=== PATIENT | female | born 1965 | race Caucasian/White ===

== ENCOUNTER 2024-11-20 13:55 | Emergency (ER) | payer OTHER, SELFPAY ==
[2024-11-20 13:57] VITALS: BP 127/76
[2024-11-20 14:15] LABS: Hematocrit 43.3 % (37.0-47.0); Hemoglobin 15.3 g/dL (12.0-16.0); Mean Corp Hgb Conc. 35.3 g/dL (33.0-37.0); Mean Corpuscular Volume 83.0 fL (81.0-99.0); Nucleated Red Blood Cells % 0 %; Platelet Count 322 10^3/uL (130-400); Red Cell Dist. Width 12.6 % (11.5-14.5)
[2024-11-20 14:31] LABS: ALT (SGPT) 23 U/L (0-35); AST (SGOT) 25 U/L (14-36); Albumin 4.8 g/dl (3.5-5.0); Alkaline Phosphatase 76 U/L (38-126); Blood Urea Nitrogen 25 mg/dl (7-17); Calcium 9.8 mg/dl (8.4-10.2); Carbon Dioxide 22 mmol/L (22-30); Chloride 109 mmol/L (98-107); Glucose 105 mg/dl (70-99); Potassium 4.2 mmol/L (3.5-5.1); Sodium 138 mmol/L (135-145); Total Protein 7.4 g/dl (6.3-8.2); eGFR 58.24
[2024-11-20 14:43] LABS: Troponin I < 0.012 ng/ml
[2024-11-20 15:40] VITALS: BP 117/73
[2024-11-20 16:00] VITALS: BP 116/67
[2024-11-20 17:00] VITALS: BP 134/81
[2024-11-20] MEDS: TYLENOL 650 MG PO (17:14)
[2024-11-20] MEDS: ZOFRAN 4 MG IV (17:14)
[2024-11-20] MEDS: NSS 1000 IV (17:14)
[2024-11-20 17:24] LABS: Urine Character Clear (Clear)
[2024-11-20 17:38] LABS: Lipase 126 U/L (23-300)
[2024-11-20 17:43] LABS: Urine Red Blood Cell 0-2 /HPF (0-2); Urine Squamous Cell 16-20 /LPF (Few); Urine White Cell 0-2 /HPF (0-5)
[2024-11-20 17:58] VITALS: BP 125/76
[2024-11-20 18:00] VITALS: BP 128/73
--- NOTE | 2024-11-20 18:30 | ED.GENMED ---
History of Present Illness
General
Chief Complaint: Abdominal Symptoms
Time Seen by Provider: 11/20/24 16:09
History of Present Illness
History of Present Illness:
see MDM
Past History
Past History
ED Past Medical History: None
Social History
Tobacco: Non-smoker
Personal: Single
Living: with family
Phy Exam
Physical Exam
Physical Exam:
GENERAL: Alert , in no apparent distress
EYE: pupils equal and reactive
NECK: Supple
ENT: o/p clr, mmm.
CARDIAC: Regular rate and rhythm .no murmur appreciated
LUNGS: Clear breath sounds bilaterally, no acute respiratory distress, no wheezes/rales/rhonchi
ABDOMEN: Soft,mild LUQ tendnress, faint bruising to this area from previous trauma, no palpable hematoma no r/g, no cvat, normal bowel sounds
NEUROLOGICAL: Alert and oriented, no focal neuro deficits
SKIN: Warm and dry, skin intact.
MUSCULOSKELETAL: No edema, well perfused. neg rock's sign
PSYCH: Normal and appropriate interaction.
Course
Orders/Labs/Results
Orders:
Orders
11/20/24 14:00
ECG [Electrocardiogram (*1)] Urgent
Reason for Study: Vertigo / Dizzy
EKG- Treatment ONCE
11/20/24 14:08
Complete Blood Count/With Diff Urgent
Comprehensive Metabolic Panel Urgent
Creatine Phosphokinase Urgent
Lipase Urgent
Troponin I Urgent
11/20/24 17:05
Add On- LAB Urgent
Tests Added?: cpk, lipase
CT Abd/Pel (IV only)-DH only Urgent
Comment:
Reason For Exam: LUQ pain, n/v/d, near sycnope
0.9% Sodium Chloride 1000 ml [Nss] 1,000 ml IV BOLUS
Acetaminophen [Tylenol] 650 mg PO NOW STA
Ondansetron Injectable [Zofran] 4 mg IV NOW STA
11/20/24 17:17
Urinalysis Reflex To Culture Urgent
Date Specimen was Collected: 11/20/24
Time Specimen was Collected: 17:08
Urine Microscopic Reflex Cult Urgent
Abnormal Lab Results
11/20/24 11/20/24
14:08 17:17
Eosinophils % 6.7 H %
(0-6)
Chloride 109 H mmol/L
(98-107)
BUN 25 H mg/dl
(7-17)
Creatinine 1.1 H mg/dL
(0.6-1.0)
Glucose 105 H mg/dl
(70-99)
Urine Ketones 1+ A
(Negative)
Ur Occult Blood Reflex 3+ A
(Negative)
Urine Bacteria (Reflex) Few A
(Negative)
Urine Albumin (Reflex) 1+ A
(Neg - Trace)
11/20/24 14:08
11/20/24 14:08
Vital Signs
Initial and Last Documented VS:
Initial Vital Signs
Temp Pulse Resp BP Pulse Ox
36.7 C 82 18 127/76 100
11/20/24 13:57 11/20/24 13:57 11/20/24 13:57 11/20/24 13:57 11/20/24 13:57
Last Documented Vital Signs
Temp Pulse Resp BP Pulse Ox
36.7 C 84 17 128/73 97
11/20/24 13:57 11/20/24 18:30 11/20/24 18:30 11/20/24 18:00 11/20/24 18:32
MDM/Problems Addressed
Differential Diagnosis Includes:
see MDM
MDM/Problems Addressed:
Note:
CHIEF COMPLAINT(S)
Severe abdominal pain accompanied by nausea and dizziness.
HISTORY OF PRESENT ILLNESS
The patient is a female no sig pmh here with abd pain, near syncope while working out in the hot conditions at [facility] [employer] [facility] [employer].
she describes experiencing dizziness and fatigue at the end of her work shift, which progressed to a 'wicked pain' in the stomach, sweating, a mild headache, a tingling sensation in her hands, nausea, and an urgent need to defecate. She reported
diarrhea both at the boathouse and afterward, with no vomiting. The symptoms commenced around 2 PM, coinciding with the peak heat and her workload.
. She suspects possible heat exhaustion as she mentioned feeling 'wiped out' and 'a little hard to breathe' due to the hot, windless environment. She consumed a high-protein meal consisting of eggs and beef sticks but noted inadequate fluid intake,
primarily relying on a large container of green tea, some liquid IV, but recognized inadequate water consumption.
The patient denied any prior syncopal episodes and any significant past medical history requiring chronic medication.
The patient also noted mild abdominal discomfort, persistent nausea, with recent abdominal bruising explained from a previous incident unrelated to current symptoms.
pt denies chest pain, palpitaitons, SOB, syncope, fever, recent travel, h/o premature CAD in family members
PHYSICAL EXAM
- Nursing notes reviewed and vital signs reviewed.
- Heart rate elevated, consistent with dehydration.
- No apparent chest tightness.
- Abdominal tenderness noted but without signs pointing toward a splenic issue.
PROBLEM LIST
- Acute: Abdominal pain, nausea, dizziness, suspected heat exhaustion, dehydration, diarrhea.
- Consideration: Vasovagal episode or beginning of a gastrointestinal infection.
PLAN
- Administration of intravenous fluids.
- Antiemetic for nausea.
- Analgesics such as Tylenol for headache management.
- Observation and reassessment of symptoms.
- Consideration of abdominal imaging (CT scan) to rule out concerning pathology if symptoms persist or worsen.
DIFFERENTIAL DIAGNOSIS
The Differential Diagnosis includes, in no particular order and is not limited to:
1. Heat exhaustion
2. Vasovagal syncope
3. Gastroenteritis
4. Dehydration
5. Viral gastrointestinal infection
6. Medication or dietary intolerance
7. Irritable bowel syndrome
8. Peptic ulcer disease
9. Acute cholecystitis
10. Abdominal aortic aneurysm
SOCIAL HISTORY
The patient does not smoke cigarettes, denies illicit drug use, and occasionally consumes alcohol.
SOCIAL DETERMINANTS AFFECTING HEALTH
No significant barriers to healthcare or social determinants directly impacting current health status were mentioned.
FAMILY HISTORY
Father with a history of myocardial infarction in their late 70s. No other significant family medical history noted.
1830
labs reviewed
wbc normal
cpk nomi;
mild BUN/CR elevation
ekg rbbb nonischemic, no tachycardia
trop neg
ua 3+ blood no rbc
CPK normal
r/o rhabdo
11/20/24 - 18:36
Patient reports improvement in headache and nausea following administration of medication. CT scan results show normal gastrointestinal and renal function with a 1 cm renal cyst and a sub-5 mm liver cyst, both deemed common and non-concerning. No
evidence of trauma or hernias; however, lumbar degenerative disease noted. Blood tests ruled out rhabdomyolysis with normal CPK levels, and pancreatic enzymes were normal, suggesting dehydration as a primary issue. Urinalysis showed blood possibly
due to dehydration and an unclean sample. Patient expresses feeling well enough for discharge and desires clearance to return to work on Monday. Advised on symptoms that would necessitate return to care, such as fever, ongoing severe
gastrointestinal symptoms, or chest pain. Follow-up urinalysis recommended to ensure resolution of hematuria.
*Pulse Oximetry
SaO2: 97
Oxygen Mode of Delivery: Room air
Patient hypoxic: no (100)
*Critical Care Note
Total Time (30-74mins, 75-104mins- exclusive of procedures): Not Applicable
ED Attending Note
-
Portions of this chart may have been created with voice recognition software.� Occasional wrong word or��sound alike� substitutions may have occurred due to the inherent limitations of voice recognition software.
Discharge Plan
Departure
Patient Disposition: Home (Routine Discharge)
Date of Disposition: 11/20/24
Time of Disposition: 18:36
Patient with high blood pressure during this ER visit?: No
Condition: Fair
Covid-19: Not Applicable
Discharge Problem:
Vasovagal near-syncope, Diarrhea, Heat exhaustion
Instructions: Near Fainting (DC), Heat Illness ED
Prescriptions:
No Action
Bactrim
1 tab PO DAILY
hydrocodone-acetaminophen 5 MG/500 MG tablet
1 tab PO .Q4-6HPRN PRN (Reason: PAIN) Qty: 20 0RF
Referrals:
Heraclio Lema MD [Family Provider, Internal Medicine]
Stand Alone Forms: Return to Work
Activity Restrictions/Additional Instructions:
YOUR SYMPTOMS COULD BE FROM THE HEAT CAUSING VASOVAGAL NEAR SYNCOPE
OR THIS COULD BE ALSO CAUSED BY A VIRAL ILLNESS (GI)
STAY HYDRATED
STAY COOL
YOUR KIDNEY FUNCTION WAS MILDLY ELEVATED, THIS IS PROBABLY RLEATED TO DEHYDRATION
YOUR URINE HAD BLOOD IN IT BUT IT IS LIKELY DEHYDRATION RELATED
YOU CAN HAVE THESE RECHECKED WHEN YOU ARE WELL
YOUR CAT SCAN DID NOT SHOW ANY PATHOLOGY
RETURN FO [facility].S
Interventions
Interventions:
*Risk Screen - Suicide Last Done: 11/20/24 14:00
*General Assessment Last Done: 11/20/24 13:57
*Neglect/Abuse Screening Last Done: 11/20/24 16:09
*ED- Fall Risk Assessment Last Done: 11/20/24 18:48
*ED COVID-19 Vaccine History Last Done: 11/20/24 15:38
*Nursing Disposition Last Done: 11/20/24 18:48
NP-Lmtcsv-Gmbuaqkmxv Assessment Last Done: 11/20/24 16:09
Discharge Date and Time
Discharge Date/Time: 11/20/24 18:54
Print Language: NAMIBIAN
== END 2024-11-20 18:54 | disposition home or self-care (01) ==
LOC: EMR 13:55
PROVIDERS: Emergency Medicine; Physician Assistant; EMERGENCY PHYSICIAN Emergency Medicine; FAMILY PHYSICIAN Internal Medicine
DX: R55 Syncope and collapse (principal); R19.7 Diarrhea, unspecified; T67.5XXA Heat exhaustion, unspecified, initial encounter; X58.XXXA Exposure to other specified factors, initial encounter
CPT/HCPCS: 99284; 96374; 96361; 74177; 80053; 81003; 81015; 82550; 83690; 84484; 85025; 93005; Q9967